=== PATIENT | female | born 1950 | race Caucasian/White ===

== ENCOUNTER 2016-12-27 18:37 | Emergency (ER) | payer MEDICARE, OTHER ==
[~2016-12-27] VITALS: Ht 170.2 cm; Wt 68.5 kg
[2016-12-27 18:38] VITALS: BP 131/93; PULSE 85; RESP 18; TEMP 98.4; O2SAT 97
[2016-12-27] MEDS ORDERED: GABA100C4 PO (19:04)
[2016-12-27] MEDS ORDERED: PLAQ200T PO (19:06)
[2016-12-27] MEDS ORDERED: HYDR-3583 PO (19:06)
[2016-12-27] MEDS ORDERED: LEFL1TAB3 PO (19:06)
--- NOTE | 2016-12-27 19:26 | PD ---
HPI Chief Complaint: Musculoskeletal Complaint Time Seen by Provider: 19:10 Travel History International Travel<30 days: No Contact w/Intl Traveler<30days: No Traveled to known affect area: No History of Present Illness HPI Patient is a 66-year-old female with a history of rheumatoid arthritis presents emergency department for evaluation of left hand pain. She states that she feels like her arthritis is flaring. She states usually when this happens she needs a shot of Decadron and Toradol then begins to feel better. She states she 's been having opiate pain medications at home tries to avoid them as much possible. She denies any injury to her hand. States she is visiting from out of town currently been taking her rheumatoid arthritis medicines as prescribed. Denies any fever denies any chest pain short of breath abdominal pain nausea vomiting diarrhea. PFSH Past Medical History Medical History: Denies Significant Hx ?: Not Past Surgical History Surgical History: No Previous Surgery Social History Alcohol Use: No Tobacco Use: No Substance Use: No Allergies-Medications (Allergen,Severity, Reaction): Coded Allergies: Flexeril (Verified Allergy, Severe, rash, 12/27/16) Imuran (Verified Allergy, Severe, gi upset/vomitng, 12/27/16) Morphine (Verified Allergy, Severe, gi upset/vomiting, 12/27/16) Phenergan (Verified Allergy, Severe, migraine, 12/27/16) Zofran (Verified Allergy, Severe, migraine, 12/27/16) Reported Meds & Prescriptions Reported Meds & Active Scripts Active Reported Leflunomide 20 Mg Tab 20 Mg PO DAILY Plaquenil (Hydroxychloroquine Sulfate) 200 Mg Tab 200 Mg PO DAILY Take with food Hydrocodone-Acetaminophen 10-325 mg Tab 1 Tab PO Q6H PRN Gabapentin 100 Mg Cap 400 Mg PO HS Review of Systems Except as stated in HPI: all other systems reviewed are Neg Physical Exam Narrative GENERAL: Well-nourished, well-developed patient. SKIN: Focused skin assessment warm/dry. HEAD: Normocephalic. EYES: No scleral icterus. No injection or drainage. NECK: Supple, trachea midline. No JVD or lymphadenopathy. CARDIOVASCULAR: Regular rate and rhythm without murmurs, gallops, or rubs. RESPIRATORY: Breath sounds equal bilaterally. No accessory muscle use. GASTROINTESTINAL: Abdomen soft, non-tender, nondistended. MUSCULOSKELETAL: Some ulnar deviation of the joints of bilateral hands, likely worse on the left hand. No focalized tenderness. The patient states that her pain is predominantly over her wrist currently. She has full range of motion in all fingers albeit somewhat tender. No swelling no deformity to suggest acute fracture. BACK: Nontender without obvious deformity. No CVA tenderness. Data Data Last Documented VS Vital Signs Date Time Temp Pulse Resp B/P Pulse Ox O2 Delivery O2 Flow Rate FiO2 12/27/16 18:38 98.4 85 18 131/93 97 Orders Dexamethasone Inj (Decadron Inj) (12/27/16 19:30) Ketorolac Inj (Toradol Inj) (12/27/16 19:30) [facility] Medical Decision Making Medical Screen Exam Complete: Yes Emergency Medical Condition: Yes Differential Diagnosis And strain, hand sprain, hand fracture unlikely, rheumatoid arthritis flare. Narrative Course Patient roomed in emergency department, she appears well in no obvious distress. Quite pleasant. She was given Decadron as well as a Toradol shot. She states she had no problems with her kidneys that she knows of on her last blood work. No indication for imaging at this time she has no physical exam findings no history to suggest an acute fracture. She stable for discharge at this time I recommend following up with her primary care physician. Diagnosis Primary Impression: Rheumatoid arthritis flare Disposition: 01 DISCHARGE HOME Condition: Stable Adolfo Hernandez MD Dec 27, 2016 19:26
[2016-12-27] MEDS ORDERED: DEXAMETHASONE SOD PHOS 4 MG/ML VIAL IM ONE (19:30)
[2016-12-27] MEDS ORDERED: KETOROLAC TROMETHAMINE 60 MG/2 ML (IM) VIAL IM ONE (19:30)
== END 2016-12-27 19:39 | disposition home or self-care (01) ==
LOC: PHEFT 18:37
DX: M06.9 Rheumatoid arthritis, unspecified (principal)
CPT/HCPCS: 96372; 99284; J1100; J1885